=== PATIENT | female | born 1990 | race Native Hawaiian/Other Pacific Islander ===

== ENCOUNTER 2021-10-08 10:51 | Emergency (ER) | payer OTHER ==
[~2021-10-08] VITALS: Ht 170.2 cm; Wt 113.4 kg
[~2021-10-08 10:51] MED LIST: ESCI20 PO; NAPR500 PO; ONDA4 PO; OXYACE5T PO; ROXICODONE5 MG PO; Verotin-Gr Cap1 EACH PO
== END 2021-10-08 12:19 | disposition home or self-care (01) ==
LOC: ER 10:51
DX: G89.18 Other acute postprocedural pain (principal); M25.561 Pain in right knee; Z79.899 Other long term (current) drug therapy; F17.200 Nicotine dependence, unspecified, uncomplicated
CPT/HCPCS: 73562-RT; 99283-25

== ENCOUNTER 2022-09-13 11:59 | Emergency (ER) | payer OTHER ==
[~2022-09-13] VITALS: Ht 170.2 cm; Wt 108.9 kg
[2022-09-13] MEDS ORDERED: METH40 PO (14:14)
[2022-09-13] MEDS ORDERED: IBUP800 PO (14:42)
[2022-09-13] MEDS ORDERED: AMOCLA875 PO (14:42)
== END 2022-09-13 14:51 | disposition home or self-care (01) ==
LOC: ER 11:59
DX: K04.7 Periapical abscess without sinus (principal); F17.210 Nicotine dependence, cigarettes, uncomplicated; Z79.899 Other long term (current) drug therapy
CPT/HCPCS: A9270

== ENCOUNTER → 2024-12-02 | Outpatient (CLI) | payer OTHER ==
[~2024-12-02] MED LIST changes: +AMOCLA875 PO; +IBUP800 PO; +METH40 PO
[2024-12-06 19:20] LABS: HPV HIGH RISK BY TMA Not Detected; HPV SOURCE Cervical
== END ==
LOC: LAB SHORT 17:33 → LAB 17:33
PROVIDERS: Physician Assistant
DX: Z12.4 Encounter for screening for malignant neoplasm of cervix (principal)
CPT/HCPCS: 87624; G0123

== ENCOUNTER 2025-06-21 02:10 | Day surgery (SDC) | payer OTHER ==
[~2025-06-21 02:10] MED LIST changes: +Sod Ferric Gluc Complx/Sucrose 125 MG in NS 100 ML IV SCH
[2025-06-21 08:27] VITALS: BP 150/83
[2025-06-21] MEDS ORDERED: NICOTINE LOZENGE2 MG MM (11:10)
[2025-06-21] MEDS ORDERED: NALOXONE H0.4 MG/1 M IM (11:10)
[2025-06-21] MEDS ORDERED: NICO21TP TOP (11:10)
[2025-06-21] MEDS ORDERED: Adipex-P37.5 M1 PO (11:13)
== END 2025-06-21 09:51 | disposition home or self-care (01) ==
LOC: ATC 02:10
DX: E61.1 Iron deficiency (principal); I10 Essential (primary) hypertension; G47.30 Sleep apnea, unspecified; E66.813 Obesity, class 3; Z68.41 Body mass index [BMI] 40.0-44.9, adult; Z79.899 Other long term (current) drug therapy; Z88.8 Allergy status to other drugs, medicaments and biological substances
CPT/HCPCS: 96365; J2916

== ENCOUNTER 2025-06-25 01:13 | Day surgery (SDC) | payer OTHER ==
[~2025-06-25 01:13] MED LIST changes: +Adipex-P37.5 M1 PO; +NALOXONE H0.4 MG/1 M IM; +NICO21TP TOP; +NICOTINE LOZENGE2 MG MM
[2025-06-25 14:08] VITALS: BP 143/81
== END 2025-06-25 15:01 | disposition home or self-care (01) ==
LOC: ATC 01:13
DX: E61.1 Iron deficiency (principal); I10 Essential (primary) hypertension; E66.01 Morbid (severe) obesity due to excess calories; Z68.41 Body mass index [BMI] 40.0-44.9, adult; Z88.8 Allergy status to other drugs, medicaments and biological substances; Z87.891 Personal history of nicotine dependence
CPT/HCPCS: 96365; J2916

== ENCOUNTER 2025-06-27 03:00 | Day surgery (SDC) | payer OTHER ==
[2025-06-27 13:35] VITALS: BP 137/51
--- NOTE | 2025-06-27 16:40 | NUR ---
AFTER 6 UNSUCCESSFUL IV ATTEMPTS BY TWO RN'S. POWERGLIDE PLACED TODAY.
== END 2025-06-27 16:04 | disposition home or self-care (01) ==
LOC: ATC 03:00
DX: E61.1 Iron deficiency (principal); E66.813 Obesity, class 3; Z68.41 Body mass index [BMI] 40.0-44.9, adult; I10 Essential (primary) hypertension; Z87.891 Personal history of nicotine dependence; Z79.899 Other long term (current) drug therapy; Z88.8 Allergy status to other drugs, medicaments and biological substances
CPT/HCPCS: 96365; C1751; J2916

== ENCOUNTER 2025-06-29 02:10 | Day surgery (SDC) | payer OTHER ==
[~2025-06-29 02:10] MED LIST changes: -Sod Ferric Gluc Complx/Sucrose 125 MG in NS 100 ML IV SCH
[2025-06-29] MEDS ORDERED: Sod Ferric Gluc Complx/Sucrose 125 MG in NS 100 ML IV SCH (06:00)
[2025-06-29 07:51] VITALS: BP 150/83
== END 2025-06-29 09:03 | disposition home or self-care (01) ==
LOC: ATC 02:10
DX: E61.1 Iron deficiency (principal); I10 Essential (primary) hypertension; E66.813 Obesity, class 3; Z68.41 Body mass index [BMI] 40.0-44.9, adult; Z87.891 Personal history of nicotine dependence; Z88.8 Allergy status to other drugs, medicaments and biological substances; Z90.49 Acquired absence of other specified parts of digestive tract
CPT/HCPCS: 96365; J2916

== ENCOUNTER 2025-07-03 01:14 | Day surgery (SDC) | payer OTHER ==
[~2025-07-03 01:14] MED LIST changes: +Sod Ferric Gluc Complx/Sucrose 125 MG in NS 100 ML IV SCH
[2025-07-03 14:30] VITALS: BP 133/76
== END 2025-07-03 15:30 | disposition home or self-care (01) ==
LOC: ATC 01:14
DX: E61.1 Iron deficiency (principal); I10 Essential (primary) hypertension; E66.813 Obesity, class 3; Z68.41 Body mass index [BMI] 40.0-44.9, adult; Z87.891 Personal history of nicotine dependence; Z79.899 Other long term (current) drug therapy
CPT/HCPCS: 96365; J2916

== ENCOUNTER 2025-07-06 00:36 | Day surgery (SDC) | payer OTHER ==
[~2025-07-06 00:36] MED LIST changes: -Sod Ferric Gluc Complx/Sucrose 125 MG in NS 100 ML IV SCH
[2025-07-06] MEDS ORDERED: Sod Ferric Gluc Complx/Sucrose 125 MG in NS 100 ML IV SCH (01:00)
== END 2025-07-06 15:08 | disposition home or self-care (01) ==
LOC: ATC 00:36
DX: E61.1 Iron deficiency (principal); I10 Essential (primary) hypertension; Z88.8 Allergy status to other drugs, medicaments and biological substances
CPT/HCPCS: 96365; J2916